=== PATIENT | female | born 1935 | race Caucasian/White ===

== ENCOUNTER 2023-11-26 15:58 | Emergency (ER) | payer MEDICARE ==
[2023-11-26] MEDS: Sodium Chloride 0.9% 10 ML Syringe FLUSH PRN (16:11)
[2023-11-26 16:21] LABS: BASOPHILS PERCENT AUTO 0.8 % (0.2-1.5); BLOOD UREA NITROGEN,BUN 19 mg/dL (7-18); CALCIUM 8.9 mg/dL (8.6-10.2); CARBON DIOXIDE,CO2 32 mmol/L (21-32); CHLORIDE,CL 103 mmol/L (100-110); EOSINOPHILS ABSOLUTE AUTO 0.2 x10-3/uL (0.0-0.8); EOSINOPHILS PERCENT AUTO 3.7 % (0.6-8.1); ESTIMATED GFR 55 mL/min (>60); GLUCOSE RANDOM 86 mg/dL (80-116); HEMATOCRIT 36.2 % (34.2-48.2); HEMOGLOBIN 11.9 g/dL (11.4-15.5); LYMPHOCYTES ABSOLUTE AUTO 0.6 x10-3/uL (1.0-4.4); LYMPHOCYTES PERCENT AUTO 13.3 % (18.4-52.1); MEAN CORPUSCULAR HEMOGLOBIN 30.2 pg (23.9-33.9); MEAN CORPUSCULAR HGB CONC 32.8 g/dL (31.9-34.8); MEAN CORPUSCULAR VOLUME 92.1 fL (76.7-100.5); MONOCYTES ABSOLUTE AUTO 0.6 x10-3/uL (0.3-1.0); MONOCYTES PERCENT AUTO 12.3 % (4.4-15.7); NEUTROPHILS ABSOLUTE AUTO 3.3 x10-3/uL (1.5-6.3); NEUTROPHILS PERCENT AUTO 69.9 % (30.8-76.2); PLATELET COUNT,PLT 119 x10(3)uL (151-488); POTASSIUM,K 4.1 mmol/L (3.5-5.3); RED BLOOD CELL COUNT 3.93 x10(6)uL (3.60-5.20); RED CELL DISTRIBUTION WIDTH 14.5 % (12.3-16.5); SODIUM,NA 142 mmol/L (135-145); WHITE BLOOD CELL COUNT,WBC 4.8 x10-3/uL (3.0-10.3)
[2023-11-26 16:26] LABS: INR 1.01 (1.00-1.24); PROTHROMBIN TIME 10.5 sec (9.0-11.1)
[2023-11-26 16:27] LABS: A/G RATIO 1.3; ALANINE AMINOTRANSFERASE,ALT 16 U/L (12-36); ALBUMIN 3.3 g/dL (3.2-4.6); ALKALINE PHOSPHATASE 81 IU/L (56-112); ASPARTATE AMNIOTRANSFERASE,AST 14 IU/L (5-25); BILIRUBIN TOTAL 0.9 mg/dL (0.1-1.3); PROTEIN TOTAL,TP 5.9 g/dL (6.0-8.0)
[2023-11-26 16:28] LABS: PTT,PARTIAL THROMBOPLSTIN TIME 25.9 SECONDS (24.4-33.2)
[2023-11-26 16:54] LABS: ACETAMINOPHEN 112 ug/mL (<2); SALICYLATE < 2.8 mg/dL (<2.8)
[2023-11-26 17:26] LABS: TSH ULTRASENSITIVE 0.84 IU/mL (0.36-3.74)
[2023-11-26 17:26] LABS: BILIRUBIN,URINE NEGATIVE (NEGATIVE); GLUCOSE,URINE NORMAL (NORMAL); KETONES,URINE NEGATIVE (NEGATIVE); LEUKOCYTE ESTERASE,URINE NEGATIVE (NEGATIVE); NITRITE,URINE NEGATIVE (NEGATIVE); OCCULT BLOOD,URINE NEGATIVE (NEGATIVE); PROTEIN,URINE NEGATIVE (NEGATIVE); UROBILINOGEN,URINE NORMAL (NEGATIVE)
[2023-11-26 17:27] LABS: ETHANOL BLOOD MEDICAL < 0.03 % (<0.03)
[2023-11-26 17:35] LABS: APPEARANCE,URINE CLEAR (CLEAR); BACTERIA,URINE OCCASIONAL (NS); COLOR,URINE YELLOW (YELLOW); RBC,URINE 0-5 (0-5); SQUAMOUS EPITHELIAL CELLS,UR OCCASIONAL (NS,R,O); WBC,URINE 0-5 (0-5)
[2023-11-26 17:36] LABS: AMPHETAMINES SCREEN, URINE NEGATIVE (NEGATIVE); BARBITURATE SCREEN,URINE NEGATIVE (NEGATIVE); BENZODIAZEPINES SCREEN,URINE NEGATIVE (NEGATIVE); BUPRENORPHINE SCREEN,URINE NEGATIVE (NEGATIVE); METHADONE SCREEN, URINE NEGATIVE (NEGATIVE); METHAMPHETAMINE SCREEN, URINE NEGATIVE (NEGATIVE); OXYCODONE SCREEN,URINE NEGATIVE (NEGATIVE); THC SCREEN,URINE NEGATIVE (NEGATIVE)
[2023-11-29 02:35] LABS: THYROXINE FREE 1.9 ng/dL (0.9-1.7)
== END 2023-11-26 18:16 ==
LOC: EDBD 15:58 → FB.ED 15:58
DX: T39.1X2A Poisoning by 4-Aminophenol derivatives, intentional self-harm, initial encounter (principal); I63.9 Cerebral infarction, unspecified; E78.5 Hyperlipidemia, unspecified; I11.0 Hypertensive heart disease with heart failure; I50.9 Heart failure, unspecified; E11.40 Type 2 diabetes mellitus with diabetic neuropathy, unspecified; E03.9 Hypothyroidism, unspecified; F32.A Depression, unspecified; Z91.018 Allergy to other foods; Z88.2 Allergy status to sulfonamides; Z88.8 Allergy status to other drugs, medicaments and biological substances
CPT/HCPCS: 36415; 70450; 71045; 80053; 80143; 80179; 80307; 81001; 84439; 84443; 84484; 85025; 85610; 85730; 93005; 99285; J3490

== ENCOUNTER 2024-01-06 01:32 | Observation (INO) | payer MEDICARE ==
[2024-01-06 02:07] LABS: BLOOD UREA NITROGEN,BUN 18 mg/dL (7-18); CALCIUM 9.3 mg/dL (8.6-10.2); CARBON DIOXIDE,CO2 31 mmol/L (21-32); CHLORIDE,CL 102 mmol/L (100-110); CREATININE 0.9 mg/dL (0.55-1.02); ESTIMATED GFR 62 mL/min (>60); GLUCOSE RANDOM 115 mg/dL (80-116); POTASSIUM,K 3.7 mmol/L (3.5-5.3); SODIUM,NA 142 mmol/L (135-145)
[2024-01-06 02:09] LABS: HEMATOCRIT 38.3 % (34.2-48.2); HEMOGLOBIN 12.8 g/dL (11.4-15.5); MEAN CORPUSCULAR HEMOGLOBIN 30.6 pg (23.9-33.9); MEAN CORPUSCULAR HGB CONC 33.4 g/dL (31.9-34.8); MEAN CORPUSCULAR VOLUME 91.6 fL (76.7-100.5); MEAN PLATELET VOLUME 9.3 fL (7.1-12.4); PLATELET COUNT,PLT 121 x10(3)uL (151-488); RED BLOOD CELL COUNT 4.18 x10(6)uL (3.60-5.20); RED CELL DISTRIBUTION WIDTH 14.7 % (12.3-16.5); WHITE BLOOD CELL COUNT,WBC 8.5 x10-3/uL (3.0-10.3)
[2024-01-06 02:13] LABS: A/G RATIO 1.2; ALANINE AMINOTRANSFERASE,ALT 25 U/L (12-36); ALBUMIN 3.8 g/dL (3.2-4.6); ALKALINE PHOSPHATASE 91 IU/L (56-112); ASPARTATE AMNIOTRANSFERASE,AST 25 IU/L (5-25); BILIRUBIN TOTAL 0.8 mg/dL (0.1-1.3); PROTEIN TOTAL,TP 7.1 g/dL (6.0-8.0)
[2024-01-06 02:19] LABS: TROPONIN I 5.8 pg/mL (4.0-60.3)
[2024-01-06 02:23] LABS: BASOPHILS PERCENT MAN 1 % (0-2); EOSINOPHILS PERCENT MAN 3 % (0-5); LYMPHOCYTES PERCENT MAN 9 % (13-37); MONOCYTES PERCENT MAN 11 % (4-12); SEG NEUTROPHILS PERCENT MAN 76 % (46-82)
[2024-01-06] MEDS ORDERED: Morphine 2 MG/ML SYRINGE IVPUSH PRN (02:27)
[2024-01-06] MEDS ORDERED: Albuterol/Ipratropium 3.0-0.5 MG/3 ML Neb Soln NEB PRN (02:39)
[2024-01-06] MEDS ORDERED: Acetaminophen 325 MG Tab PO PRN (02:39)
[2024-01-06] MEDS: Furosemide 40 MG/4 ML VIAL IVPUSH ONE (03:09)
[2024-01-06] MEDS: Sodium Chloride 0.9% 10 ML Syringe FLUSH PRN (03:09)
[2024-01-06] MEDS: Enoxaparin 40 MG/0.4 ML Syringe SUBCUT SCH (03:14)
[2024-01-06 06:41] LABS: HEMATOCRIT 40.2 % (34.2-48.2); HEMOGLOBIN 13.1 g/dL (11.4-15.5); MEAN CORPUSCULAR HEMOGLOBIN 30.1 pg (23.9-33.9); MEAN CORPUSCULAR HGB CONC 32.7 g/dL (31.9-34.8); MEAN CORPUSCULAR VOLUME 92.1 fL (76.7-100.5); MEAN PLATELET VOLUME 9.3 fL (7.1-12.4); PLATELET COUNT,PLT 132 x10(3)uL (151-488); RED BLOOD CELL COUNT 4.37 x10(6)uL (3.60-5.20); RED CELL DISTRIBUTION WIDTH 14.4 % (12.3-16.5); WHITE BLOOD CELL COUNT,WBC 10.3 x10-3/uL (3.0-10.3)
[2024-01-06 06:46] LABS: INFLUENZA A NAA NEGATIVE (NEGATIVE); INFLUENZA B NAA NEGATIVE (NEGATIVE); RESPIRATORY SYNCYTIAL VIR NAA NEGATIVE (NEGATIVE)
[2024-01-06 06:47] LABS: CORONAVIRUS COVID-19 NAA NEGATIVE (NEGATIVE)
[2024-01-06 06:47] LABS: BLOOD UREA NITROGEN,BUN 16 mg/dL (7-18); BUN/CREATININE RATIO 17.8 (9-20); CALCIUM 9.4 mg/dL (8.6-10.2); CARBON DIOXIDE,CO2 34 mmol/L (21-32); CHLORIDE,CL 100 mmol/L (100-110); CREATININE 0.9 mg/dL (0.55-1.02); EST CRCL DRUG DOSING (CG) 44.42 mL/min; ESTIMATED GFR 62 mL/min (>60); GLUCOSE RANDOM 104 mg/dL (80-116); POTASSIUM,K 3.4 mmol/L (3.5-5.3); SODIUM,NA 141 mmol/L (135-145)
[2024-01-06 06:59] LABS: EOSINOPHILS PERCENT MAN 1 % (0-5); LYMPHOCYTES PERCENT MAN 9 % (13-37); MONOCYTES PERCENT MAN 9 % (4-12); SEG NEUTROPHILS PERCENT MAN 81 % (46-82)
[2024-01-06] MEDS: buPROPion 150 MG Tab.ER PO SCH (08:27)
[2024-01-06] MEDS: Citalopram 10 MG Tab PO SCH (08:27)
[2024-01-06] MEDS: Multivitamin Tab PO SCH (08:27)
[2024-01-06] MEDS: Hydrochlorothiazide/Triamterene 25-37.5 Tab PO SCH (08:34)
[2024-01-06] MEDS: Potassium Chloride 20 MEQ Tab.ER PO ONE (11:04)
[2024-01-06] MEDS ORDERED: Donepezil 5 MG Tab PO SCH (21:00)
[2024-01-06] MEDS ORDERED: Enoxaparin 40 MG/0.4 ML Syringe SUBCUT SCH (21:00)
== END 2024-01-06 13:30 | disposition home or self-care (01) ==
LOC: EDBD → FB.ED 01:32 → FB.MS 02:27 → MERGE 02:27
PROVIDERS: ADMIT Family Medicine; ATTEND Family Medicine
DX: I50.43 Acute on chronic combined systolic (congestive) and diastolic (congestive) heart failure (principal); I27.20 Pulmonary hypertension, unspecified; K21.9 Gastro-esophageal reflux disease without esophagitis; E03.9 Hypothyroidism, unspecified; Z87.891 Personal history of nicotine dependence; Z79.890 Hormone replacement therapy; Z79.899 Other long term (current) drug therapy; Z88.0 Allergy status to penicillin; Z88.2 Allergy status to sulfonamides; Z91.018 Allergy to other foods
CPT/HCPCS: 0241U; 36415; 51702; 71045; 80048; 80053; 83735; 83880; 84484; 85025; 85379; 86140; 93005; 93010; 96372; 96374; 99222; 99285; A9270; G0378; J1650; J1940; J3490

== ENCOUNTER 2024-02-11 23:49 | Emergency (ER) | payer MEDICARE ==
[2024-02-12] MEDS: Albuterol/Ipratropium 3.0-0.5 MG/3 ML Neb Soln NEB ONE (00:07)
[2024-02-12 00:12] LABS: BASOPHILS PERCENT AUTO 0.6 % (0.2-1.5); EOSINOPHILS ABSOLUTE AUTO 0.2 x10-3/uL (0.0-0.8); EOSINOPHILS PERCENT AUTO 2.8 % (0.6-8.1); HEMATOCRIT 37.8 % (34.2-48.2); HEMOGLOBIN 12.5 g/dL (11.4-15.5); LYMPHOCYTES ABSOLUTE AUTO 0.8 x10-3/uL (1.0-4.4); MEAN CORPUSCULAR HEMOGLOBIN 30.4 pg (23.9-33.9); MEAN CORPUSCULAR VOLUME 92.2 fL (76.7-100.5); MEAN PLATELET VOLUME 9.3 fL (7.1-12.4); MONOCYTES ABSOLUTE AUTO 0.8 x10-3/uL (0.3-1.0); MONOCYTES PERCENT AUTO 12.8 % (4.4-15.7); NEUTROPHILS ABSOLUTE AUTO 4.5 x10-3/uL (1.5-6.3); NEUTROPHILS PERCENT AUTO 70.8 % (30.8-76.2); PLATELET COUNT,PLT 117 x10(3)uL (151-488); RED CELL DISTRIBUTION WIDTH 14.9 % (12.3-16.5); WHITE BLOOD CELL COUNT,WBC 6.3 x10-3/uL (3.0-10.3)
[2024-02-12 00:13] LABS: BLOOD UREA NITROGEN,BUN 19 mg/dL (7-18); CALCIUM 8.9 mg/dL (8.6-10.2); CARBON DIOXIDE,CO2 31 mmol/L (21-32); CHLORIDE,CL 104 mmol/L (100-110); EST CRCL DRUG DOSING (CG) 39.23 mL/min; ESTIMATED GFR 54 mL/min (>60); GLUCOSE RANDOM 104 mg/dL (80-116); SODIUM,NA 142 mmol/L (135-145)
[2024-02-12 00:19] LABS: A/G RATIO 1.2; ALANINE AMINOTRANSFERASE,ALT 21 U/L (12-36); ALBUMIN 3.7 g/dL (3.2-4.6); ALKALINE PHOSPHATASE 86 IU/L (56-112); ASPARTATE AMNIOTRANSFERASE,AST 20 IU/L (5-25); BILIRUBIN TOTAL 0.7 mg/dL (0.1-1.3); PROTEIN TOTAL,TP 6.8 g/dL (6.0-8.0)
[2024-02-12] MEDS: Furosemide 20 MG/2 ML VIAL IVPUSH ONE (00:50)
[2024-02-12 01:44] LABS: INFLUENZA A NAA NEGATIVE (NEGATIVE); INFLUENZA B NAA NEGATIVE (NEGATIVE); RESPIRATORY SYNCYTIAL VIR NAA NEGATIVE (NEGATIVE)
[2024-02-12 01:45] LABS: CORONAVIRUS COVID-19 NAA NEGATIVE (NEGATIVE)
== END 2024-02-12 05:16 | disposition home or self-care (01) ==
LOC: FB.ED 23:49
DX: I11.0 Hypertensive heart disease with heart failure (principal); I50.9 Heart failure, unspecified; E78.00 Pure hypercholesterolemia, unspecified; K21.9 Gastro-esophageal reflux disease without esophagitis; E03.9 Hypothyroidism, unspecified; Z88.8 Allergy status to other drugs, medicaments and biological substances; Z88.0 Allergy status to penicillin; Z88.2 Allergy status to sulfonamides; Z79.899 Other long term (current) drug therapy; Z86.19 Personal history of other infectious and parasitic diseases; Z86.16 Personal history of COVID-19
CPT/HCPCS: 0241U; 36415; 71045; 80053; 83735; 83880; 85025; 86140; 93005; 96374; 99283; 99285-25; J1940; J7620

== ENCOUNTER 2024-09-07 11:17 | Inpatient (IN) | payer MEDICARE ==
[2024-09-07] MEDS ORDERED: Lactated Ringers 1,000 ML IV SCH (11:30)
[2024-09-07 12:49] LABS: BASOPHILS ABSOLUTE AUTO 0.1 x10-3/uL (0.0-0.1); BASOPHILS PERCENT AUTO 1.3 % (0.2-1.5); EOSINOPHILS ABSOLUTE AUTO 0.1 x10-3/uL (0.0-0.8); EOSINOPHILS PERCENT AUTO 0.7 % (0.6-8.1); HEMATOCRIT 38.4 % (34.2-48.2); HEMOGLOBIN 12.9 g/dL (11.4-15.5); LYMPHOCYTES ABSOLUTE AUTO 0.6 x10-3/uL (1.0-4.4); LYMPHOCYTES PERCENT AUTO 5.7 % (18.4-52.1); MEAN CORPUSCULAR HEMOGLOBIN 30.5 pg (23.9-33.9); MEAN CORPUSCULAR HGB CONC 33.6 g/dL (31.9-34.8); MEAN CORPUSCULAR VOLUME 90.6 fL (76.7-100.5); MEAN PLATELET VOLUME 9.4 fL (7.1-12.4); MONOCYTES ABSOLUTE AUTO 1.5 x10-3/uL (0.3-1.0); NEUTROPHILS ABSOLUTE AUTO 8.5 x10-3/uL (1.5-6.3); NEUTROPHILS PERCENT AUTO 78.3 % (30.8-76.2); PLATELET COUNT,PLT 116 x10(3)uL (151-488); RED BLOOD CELL COUNT 4.24 x10(6)uL (3.60-5.20); RED CELL DISTRIBUTION WIDTH 14.5 % (12.3-16.5); WHITE BLOOD CELL COUNT,WBC 10.8 x10-3/uL (3.0-10.3)
[2024-09-07 12:52] LABS: BLOOD UREA NITROGEN,BUN 26 mg/dL (7-18); BUN/CREATININE RATIO 23.6 (9-20); CALCIUM 10.3 mg/dL (8.6-10.2); CARBON DIOXIDE,CO2 30 mmol/L (21-32); CHLORIDE,CL 105 mmol/L (100-110); CREATININE 1.1 mg/dL (0.55-1.02); ESTIMATED GFR 48 mL/min (>60); GLUCOSE RANDOM 126 mg/dL (80-116); POTASSIUM,K 3.5 mmol/L (3.5-5.3); SODIUM,NA 144 mmol/L (135-145)
[2024-09-07 12:57] LABS: PROTHROMBIN TIME 10.4 sec (9.0-11.1)
[2024-09-07 12:58] LABS: A/G RATIO 1.2; ALANINE AMINOTRANSFERASE,ALT 20 U/L (12-36); ALBUMIN 3.7 g/dL (3.2-4.6); ALKALINE PHOSPHATASE 128 IU/L (56-112); ASPARTATE AMNIOTRANSFERASE,AST 27 IU/L (5-25); BILIRUBIN TOTAL 1.1 mg/dL (0.1-1.3); PROTEIN TOTAL,TP 6.9 g/dL (6.0-8.0)
[2024-09-07 12:59] LABS: PTT,PARTIAL THROMBOPLSTIN TIME 23.7 SECONDS (24.4-33.2)
[2024-09-07 13:04] LABS: TROPONIN I 9.7 pg/mL (4.0-60.3)
[2024-09-07 13:50] LABS: BILIRUBIN,URINE NEGATIVE (NEGATIVE); GLUCOSE,URINE NORMAL (NORMAL); KETONES,URINE NEGATIVE (NEGATIVE); LEUKOCYTE ESTERASE,URINE NEGATIVE (NEGATIVE); NITRITE,URINE NEGATIVE (NEGATIVE); OCCULT BLOOD,URINE NEGATIVE (NEGATIVE); PROTEIN,URINE TRACE mg/dL (NEGATIVE); UROBILINOGEN,URINE NORMAL (NEGATIVE)
[2024-09-07 13:53] LABS: APPEARANCE,URINE CLEAR (CLEAR); COLOR,URINE YELLOW (YELLOW)
[2024-09-07 14:02] LABS: BACTERIA,URINE FEW (NS); EPITHELIAL CELLS,URINE MODERATE; HYALINE CASTS,URINE MODERATE (NS); MUCUS,URINE FEW (NS); RBC,URINE 0-5 (0-5); WBC,URINE 0-5 (0-5)
[2024-09-07] MEDS: Sodium Chloride 0.9% 1,000 ML IV SCH (17:21)
[2024-09-07] MEDS ORDERED: Sennosides/Docusate Sodium 50-8.6 MG Tab PO PRN (17:59)
[2024-09-07] MEDS ORDERED: Ondansetron 4 MG/2 ML SDV IV PRN (17:59)
[2024-09-07] MEDS ORDERED: Loratadine 10 MG Tab PO PRN (18:11)
[2024-09-07] MEDS ORDERED: Albuterol 0.083% 2.5 MG/3 ML Neb Soln INH PRN (18:11)
[2024-09-07] MEDS: Rosuvastatin 20 MG Tab PO SCH (21:14)
[2024-09-07] MEDS: Donepezil 5 MG Tab PO SCH (21:14)
[2024-09-07] MEDS: Propranolol 80 MG Cap.ER PO SCH (21:15)
[2024-09-07] MEDS: Enoxaparin 40 MG/0.4 ML Syringe SUBCUT SCH (21:15)
[2024-09-07] MEDS: Ferrous Sulfate 325 MG Tab PO SCH (21:15)
[2024-09-07] MEDS: Potassium Chloride 10 MEQ Tab.ER PO SCH (21:15)
[2024-09-07] MEDS: Gabapentin 300 MG Cap PO SCH (21:15)
[2024-09-07] MEDS: Famotidine 20 MG Tab PO SCH (21:16)
[2024-09-07] MEDS: Oxybutynin 5 MG Tab.ER PO SCH (21:16)
[2024-09-07] MEDS: Acetaminophen 325 MG Tab PO PRN (21:22)
[2024-09-07] MEDS: Nystatin Ointment 15 GM Tube TOP SCH (21:25)
[2024-09-07] MEDS: LORazepam 2 MG/ML SDV IVPUSH ONE (22:22)
[2024-09-07] MEDS: OLANZapine 10 MG Vial IM ONE (23:01)
[2024-09-08 06:42] LABS: HEMATOCRIT 34.1 % (34.2-48.2); HEMOGLOBIN 11.4 g/dL (11.4-15.5); MEAN CORPUSCULAR HEMOGLOBIN 30.5 pg (23.9-33.9); MEAN CORPUSCULAR HGB CONC 33.5 g/dL (31.9-34.8); MEAN CORPUSCULAR VOLUME 91.1 fL (76.7-100.5); MEAN PLATELET VOLUME 9.6 fL (7.1-12.4); PLATELET COUNT,PLT 103 x10(3)uL (151-488); RED BLOOD CELL COUNT 3.74 x10(6)uL (3.60-5.20); RED CELL DISTRIBUTION WIDTH 14.6 % (12.3-16.5)
[2024-09-08 06:55] LABS: ALANINE AMINOTRANSFERASE,ALT 19 U/L (12-36); ALBUMIN 2.7 g/dL (3.2-4.6); ALKALINE PHOSPHATASE 101 IU/L (56-112); ASPARTATE AMNIOTRANSFERASE,AST 27 IU/L (5-25); BILIRUBIN TOTAL 0.9 mg/dL (0.1-1.3); BLOOD UREA NITROGEN,BUN 16 mg/dL (7-18); BUN/CREATININE RATIO 17.8 (9-20); CALCIUM 8.5 mg/dL (8.6-10.2); CARBON DIOXIDE,CO2 35 mmol/L (21-32); CHLORIDE,CL 108 mmol/L (100-110); CREATININE 0.9 mg/dL (0.55-1.02); ESTIMATED GFR 61 mL/min (>60); GLUCOSE RANDOM 87 mg/dL (80-116); POTASSIUM,K 3.4 mmol/L (3.5-5.3); PROTEIN TOTAL,TP 5.4 g/dL (6.0-8.0); SODIUM,NA 146 mmol/L (135-145)
[2024-09-08 07:10] LABS: EOSINOPHILS PERCENT MAN 2 % (0-5); LYMPHOCYTES PERCENT MAN 12 % (13-37); MONOCYTES PERCENT MAN 14 % (4-12); SEG NEUTROPHILS PERCENT MAN 72 % (46-82)
[2024-09-08] MEDS ORDERED: Carboxymethylcellulose Sodium 0.5% Ophth Soln 15 ML Bottle EYEBOTH PRN (07:38)
[2024-09-08] MEDS: buPROPion 150 MG Tab.ER PO SCH (08:38)
[2024-09-08] MEDS: Lisinopril 10 MG Tab PO SCH (08:38)
[2024-09-08] MEDS: Aspirin 81 MG Tab.EC PO SCH (08:38)
[2024-09-08] MEDS: Cholecalciferol (Vitamin D3) 25 MCG Tab PO SCH (08:38)
[2024-09-08] MEDS: DULoxetine 60 MG Cap PO SCH (08:38)
[2024-09-08] MEDS: Magnesium Oxide 400 MG Tab PO SCH (08:38)
[2024-09-08] MEDS: Multivitamin Tab PO SCH (08:39)
[2024-09-08] MEDS ORDERED: SELENIUM 200 MCG PO SCH (09:00)
[2024-09-08] MEDS: Acetaminophen 500 MG Tab PO SCH (09:35)
[2024-09-08] MEDS: Furosemide 20 MG Tab PO SCH (09:35)
[2024-09-09 06:25] LABS: BLOOD UREA NITROGEN,BUN 17 mg/dL (7-18); BUN/CREATININE RATIO 18.9 (9-20); CARBON DIOXIDE,CO2 34 mmol/L (21-32); CHLORIDE,CL 105 mmol/L (100-110); CREATININE 0.9 mg/dL (0.55-1.02); GLUCOSE RANDOM 84 mg/dL (80-116); POTASSIUM,K 3.5 mmol/L (3.5-5.3); SODIUM,NA 144 mmol/L (135-145)
[2024-09-09 06:26] LABS: CALCIUM 9.1 mg/dL (8.6-10.2); ESTIMATED GFR 61 mL/min (>60)
[2024-09-09] MEDS ORDERED: Propranolol 80 MG Cap.ER PO SCH (09:00)
[2024-09-09] MEDS: Sodium Chloride 0.9% 10 ML Syringe FLUSH PRN (12:50)
[2024-09-10 10:41] LABS: BASOPHILS PERCENT AUTO 0.7 % (0.2-1.5); EOSINOPHILS ABSOLUTE AUTO 0.3 x10-3/uL (0.0-0.8); EOSINOPHILS PERCENT AUTO 4.6 % (0.6-8.1); HEMATOCRIT 37.3 % (34.2-48.2); HEMOGLOBIN 12.4 g/dL (11.4-15.5); LYMPHOCYTES ABSOLUTE AUTO 0.5 x10-3/uL (1.0-4.4); LYMPHOCYTES PERCENT AUTO 7.9 % (18.4-52.1); MEAN CORPUSCULAR HEMOGLOBIN 30.2 pg (23.9-33.9); MEAN CORPUSCULAR HGB CONC 33.2 g/dL (31.9-34.8); MEAN CORPUSCULAR VOLUME 90.9 fL (76.7-100.5); MEAN PLATELET VOLUME 8.7 fL (7.1-12.4); MONOCYTES ABSOLUTE AUTO 0.8 x10-3/uL (0.3-1.0); MONOCYTES PERCENT AUTO 11.6 % (4.4-15.7); NEUTROPHILS ABSOLUTE AUTO 5.1 x10-3/uL (1.5-6.3); NEUTROPHILS PERCENT AUTO 75.2 % (30.8-76.2); PLATELET COUNT,PLT 133 x10(3)uL (151-488); RED CELL DISTRIBUTION WIDTH 14.5 % (12.3-16.5); WHITE BLOOD CELL COUNT,WBC 6.8 x10-3/uL (3.0-10.3)
[2024-09-11 06:48] LABS: HEMATOCRIT 35.6 % (34.2-48.2); HEMOGLOBIN 12.1 g/dL (11.4-15.5); MEAN CORPUSCULAR HEMOGLOBIN 30.7 pg (23.9-33.9); MEAN CORPUSCULAR HGB CONC 33.9 g/dL (31.9-34.8); MEAN CORPUSCULAR VOLUME 90.3 fL (76.7-100.5); MEAN PLATELET VOLUME 9.8 fL (7.1-12.4); PLATELET COUNT,PLT 128 x10(3)uL (151-488); RED BLOOD CELL COUNT 3.94 x10(6)uL (3.60-5.20); RED CELL DISTRIBUTION WIDTH 14.4 % (12.3-16.5)
[2024-09-11 06:57] LABS: BLOOD UREA NITROGEN,BUN 14 mg/dL (7-18); CALCIUM 9.3 mg/dL (8.6-10.2); CARBON DIOXIDE,CO2 34 mmol/L (21-32); CHLORIDE,CL 104 mmol/L (100-110); EST CRCL DRUG DOSING (CG) 39.23 mL/min; ESTIMATED GFR 54 mL/min (>60); GLUCOSE RANDOM 84 mg/dL (80-116); POTASSIUM,K 3.3 mmol/L (3.5-5.3); SODIUM,NA 143 mmol/L (135-145)
[2024-09-11 07:17] LABS: LYMPHOCYTES PERCENT MAN 24 % (13-37); MONOCYTES PERCENT MAN 10 % (4-12); SEG NEUTROPHILS PERCENT MAN 58 % (46-82)
[2024-09-11 07:18] LABS: EOSINOPHILS PERCENT MAN 8 % (0-5)
[2024-09-11] MEDS ORDERED: Potassium Chloride 20 MEQ Tab.ER PO ONE (09:05)
[2024-09-11] MEDS: Potassium Chloride 20 MEQ Tab.ER PO ONE (11:13)
[2024-09-12 06:48] LABS: HEMATOCRIT 36.2 % (34.2-48.2); HEMOGLOBIN 12.3 g/dL (11.4-15.5); MEAN CORPUSCULAR HEMOGLOBIN 30.5 pg (23.9-33.9); MEAN CORPUSCULAR VOLUME 89.8 fL (76.7-100.5); MEAN PLATELET VOLUME 9.3 fL (7.1-12.4); PLATELET COUNT,PLT 134 x10(3)uL (151-488); RED BLOOD CELL COUNT 4.03 x10(6)uL (3.60-5.20); RED CELL DISTRIBUTION WIDTH 14.7 % (12.3-16.5); WHITE BLOOD CELL COUNT,WBC 5.6 x10-3/uL (3.0-10.3)
[2024-09-12 06:53] LABS: BLOOD UREA NITROGEN,BUN 16 mg/dL (7-18); CALCIUM 9.3 mg/dL (8.6-10.2); CARBON DIOXIDE,CO2 33 mmol/L (21-32); CHLORIDE,CL 106 mmol/L (100-110); EST CRCL DRUG DOSING (CG) 39.23 mL/min; ESTIMATED GFR 54 mL/min (>60); GLUCOSE RANDOM 83 mg/dL (80-116); POTASSIUM,K 3.9 mmol/L (3.5-5.3); SODIUM,NA 144 mmol/L (135-145)
[2024-09-12 07:04] LABS: EOSINOPHILS PERCENT MAN 7 % (0-5); LYMPHOCYTES PERCENT MAN 21 % (13-37); MONOCYTES PERCENT MAN 8 % (4-12); SEG NEUTROPHILS PERCENT MAN 64 % (46-82)
[2024-09-12] MEDS: Ondansetron 4 MG Tab.DIS PO PRN (07:53)
== END 2024-09-13 11:35 | disposition swing bed (61) | DRG 560 ==
LOC: FB.ED 11:17 → FB.MS 17:59
PROVIDERS: ADMIT Emergency Medicine; ATTEND Internal Medicine
DX: N17.9 Acute kidney failure, unspecified (principal); E86.0 Dehydration; S32.010D Wedge compression fracture of first lumbar vertebra, subsequent encounter for fracture with routine healing; F02.B18 Dementia in other diseases classified elsewhere, moderate, with other behavioral disturbance; F02.B2 Dementia in other diseases classified elsewhere, moderate, with psychotic disturbance; F02.B3 Dementia in other diseases classified elsewhere, moderate, with mood disturbance; G93.40 Encephalopathy, unspecified; S22.41XD Multiple fractures of ribs, right side, subsequent encounter for fracture with routine healing; R29.6 Repeated falls; E03.9 Hypothyroidism, unspecified; G30.9 Alzheimer's disease, unspecified; E87.6 Hypokalemia; R00.1 Bradycardia, unspecified; G62.9 Polyneuropathy, unspecified; H54.7 Unspecified visual loss; I50.9 Heart failure, unspecified; I11.0 Hypertensive heart disease with heart failure; X58.XXXD Exposure to other specified factors, subsequent encounter; E78.00 Pure hypercholesterolemia, unspecified; R91.1 Solitary pulmonary nodule; K21.9 Gastro-esophageal reflux disease without esophagitis; M19.90 Unspecified osteoarthritis, unspecified site; Z96.649 Presence of unspecified artificial hip joint; Z96.659 Presence of unspecified artificial knee joint; F17.210 Nicotine dependence, cigarettes, uncomplicated; Z88.0 Allergy status to penicillin; Z88.2 Allergy status to sulfonamides; Z88.8 Allergy status to other drugs, medicaments and biological substances; Z79.899 Other long term (current) drug therapy; Z79.82 Long term (current) use of aspirin; Z79.51 Long term (current) use of inhaled steroids; Z85.3 Personal history of malignant neoplasm of breast; Z85.51 Personal history of malignant neoplasm of bladder; Z86.16 Personal history of COVID-19; Z98.49 Cataract extraction status, unspecified eye; Z90.10 Acquired absence of unspecified breast and nipple; W19.XXXD Unspecified fall, subsequent encounter
CPT/HCPCS: 36415; 70450; 71250; 72128; 72131; 72192; 73562; 80053; 81001; 82550; 83735; 83880; 84484; 85025; 85610; 85730; 93005; 96360; 99285; J7030; 71046; 80048; 84132; 97116-GP; 97161-GP; 97165-GO; 97530-GO; 97530-GP; 97535-GO; 99223; 99233; 99238; A9270-GY; J1650; J2060; Q0162

== ENCOUNTER 2024-09-13 11:24 | Inpatient (IN) | payer MEDICARE ==
[2024-09-13] MEDS ORDERED: Melatonin 3 MG Tab PO PRN (12:39)
[2024-09-13] MEDS ORDERED: Loratadine 10 MG Tab PO PRN (12:40)
[2024-09-13] MEDS ORDERED: Ondansetron 4 MG Tab.DIS PO PRN (12:40)
[2024-09-13] MEDS ORDERED: Furosemide 20 MG Tab PO PRN (12:40)
[2024-09-13] MEDS ORDERED: Albuterol 0.083% 2.5 MG/3 ML Neb Soln INH PRN (12:40)
[2024-09-13] MEDS ORDERED: Carboxymethylcellulose Sodium 0.5% Ophth Soln 15 ML Bottle EYEBOTH PRN (12:49)
[2024-09-13] MEDS: Acetaminophen 500 MG Tab PO SCH (14:52)
[2024-09-13] MEDS: Gabapentin 300 MG Cap PO SCH (14:52)
[2024-09-13] MEDS: Donepezil 5 MG Tab PO SCH (20:56)
[2024-09-13] MEDS: Ferrous Sulfate 325 MG Tab PO SCH (20:57)
[2024-09-13] MEDS: Potassium Chloride 10 MEQ Tab.ER PO SCH (20:57)
[2024-09-13] MEDS: Rosuvastatin 20 MG Tab PO SCH (20:57)
[2024-09-13] MEDS: Oxybutynin 5 MG Tab.ER PO SCH (20:58)
[2024-09-13] MEDS: Famotidine 20 MG Tab PO SCH (20:59)
[2024-09-14] MEDS: Furosemide 20 MG Tab PO SCH (08:16)
[2024-09-14] MEDS: Aspirin 81 MG Tab.EC PO SCH (08:16)
[2024-09-14] MEDS: DULoxetine 60 MG Cap PO SCH (08:16)
[2024-09-14] MEDS: Lisinopril 10 MG Tab PO SCH (08:17)
[2024-09-14] MEDS: Magnesium Oxide 400 MG Tab PO SCH (08:17)
[2024-09-14] MEDS: Multivitamin Tab PO SCH (08:18)
[2024-09-14] MEDS: Cholecalciferol (Vitamin D3) 25 MCG Tab PO SCH (08:18)
[2024-09-14] MEDS: buPROPion 150 MG Tab.ER PO SCH (08:18)
[2024-09-16] MEDS: Bisacodyl 5 MG Tab PO PRN (14:21)
[2024-09-17] MEDS: traMADol 50 MG Tab PO PRN (16:16)
== END 2024-09-22 10:50 | disposition home health service (06) | DRG 560 ==
LOC: FB.MS 11:24
PROVIDERS: ADMIT Internal Medicine; ATTEND Family Medicine
DX: S32.010D Wedge compression fracture of first lumbar vertebra, subsequent encounter for fracture with routine healing (principal); F02.B18 Dementia in other diseases classified elsewhere, moderate, with other behavioral disturbance; S22.41XD Multiple fractures of ribs, right side, subsequent encounter for fracture with routine healing; R53.81 Other malaise; Z66 Do not resuscitate; G30.9 Alzheimer's disease, unspecified; F17.210 Nicotine dependence, cigarettes, uncomplicated; G25.0 Essential tremor; R29.6 Repeated falls; I50.9 Heart failure, unspecified; K21.9 Gastro-esophageal reflux disease without esophagitis; E87.6 Hypokalemia; Z79.82 Long term (current) use of aspirin; Z79.899 Other long term (current) drug therapy; Z88.0 Allergy status to penicillin; Z88.8 Allergy status to other drugs, medicaments and biological substances; Z86.16 Personal history of COVID-19; W19.XXXD Unspecified fall, subsequent encounter
CPT/HCPCS: 97110-GP; 97112-GP; 97116-GP; 97530-GO; 97530-GP; 97535-GO; A9270-GY